=== PATIENT | female | born 2000 | race Caucasian/White ===

== ENCOUNTER 2022-04-06 04:00 | Observation (INO) ==
[2022-04-06] MEDS ORDERED: *HR* Nalbuphine 10 MG/ML AMPUL IV PRN (04:05)
[2022-04-06] MEDS ORDERED: Naloxone 0.4 MG/ML INJ IVP PRN (04:05)
[2022-04-06] MEDS ORDERED: Ondansetron 4 MG/2 ML VIAL IVP PRN (04:05)
[2022-04-06] MEDS ORDERED: miSOPROStoL 25 MCG TABLET PO PRN (04:05)
[2022-04-06] MEDS ORDERED: Famotidine 20 MG/2 ML VIAL IVP PRN (04:05)
[2022-04-06] MEDS ORDERED: Metoclopramide 10 MG/2 ML VIAL IVP PRN (04:05)
[2022-04-06] MEDS ORDERED: Ringers Solution, Lactated 1,000 ML IVC SCH (04:15)
[2022-04-06 05:06] LABS: Basophils % 0.4 %; Eosinophils # 0.2 K/mcL (0.0-0.6); Eosinophils % 2.8 %; Hematocrit 38.4 % (35.3-44.9); Hemoglobin 13.3 g/dL (11.5-15.4); Immature Granulocytes % 0.8 % (0-4); Lymphocytes # 2.5 K/mcL (0.6-4.6); Lymphocytes % 31.2 %; Mean Corpuscular HGB Conc 34.6 g/dL (31.6-35.5); Mean Corpuscular Hemoglobin 29.8 pg (28.0-33.3); Mean Corpuscular Volume 85.9 fL (83.0-100.0); Mean Platelet Volume 9.7 fL (9.4-12.4); Monocytes # 0.6 K/mcL (0.0-1.3); Monocytes % 7.4 %; Neutrophils # 4.6 K/mcL (1.6-8.9); Platelet Count 246 K/mcL (140-400); Red Blood Count 4.47 M/mcL (3.82-4.97); Red Cell Distribution Width 13.2 % (11.5-14.5); Segmented Neutrophils % 57.4 %
[2022-04-06 05:08] LABS: Amphetamine Screen,Urine Negative ng/mL (Cutoff=1000); Barbiturate Screen,Urine Negative ng/mL (Cutoff=200); Benzodiazepines Screen,Urine Negative ng/mL (Cutoff=200); Cannabinoid Screen,Urine Negative ng/mL (Cutoff = 50); Cocaine Screen,Urine Negative ng/mL (Cutoff= 300); Opiate Screen,Urine Negative ng/mL (Cutoff=300); Phencyclidine Screen,Urine Negative ng/mL (Cutoff=25)
[2022-04-06] MEDS ORDERED: EPHEDrine sulfate 50 MG/10 ML VIAL IVP PRN (08:48)
[2022-04-06] MEDS ORDERED: Epidural Premix (fent/bupiv) 110 ML EP SCH (09:00)
[2022-04-06] MEDS ORDERED: Oxytocin 30 UNIT/503 ML BAG IVC SCH (11:30)
== END 2022-04-06 18:30 | disposition home or self-care (01) ==
LOC: INTOOBSV 04:01 → 1NENULAB 04:01
PROVIDERS: ADMIT Obstetrics & Gynecology; ATTEND Obstetrics & Gynecology

== ENCOUNTER → 2022-04-08 16:21 | Observation (INO) | END | disposition home or self-care (01) | LOC: 1NENULAB | PROVIDERS: ADMIT Obstetrics & Gynecology; ATTEND Obstetrics & Gynecology ==

== ENCOUNTER 2022-04-12 19:19 | Inpatient (IN) ==
[2022-04-12] MEDS ORDERED: Ringers Solution, Lactated 1,000 ML ONE (19:20)
[2022-04-12] MEDS ORDERED: Lidocaine 1% 20 ML MDV INFILT PRN (19:58)
[2022-04-12] MEDS ORDERED: *HR* Nalbuphine 10 MG/ML AMPUL IV PRN (19:58)
[2022-04-12] MEDS ORDERED: Naloxone 0.4 MG/ML INJ IVP PRN (19:58)
[2022-04-12] MEDS ORDERED: Metoclopramide 10 MG/2 ML VIAL IVP PRN (19:58)
[2022-04-12] MEDS ORDERED: Famotidine 20 MG/2 ML VIAL IVP PRN (19:58)
[2022-04-12] MEDS ORDERED: Ondansetron 4 MG/2 ML VIAL IVP PRN (19:58)
[2022-04-12] MEDS ORDERED: Ringers Solution, Lactated 1,000 ML IVC SCH (20:00)
[2022-04-12] MEDS ORDERED: *HR* Nalbuphine 10 MG/ML AMPUL ONE (20:11)
[2022-04-12 20:49] LABS: Basophils % 0.1 %; Eosinophils # 0.1 K/mcL (0.0-0.6); Eosinophils % 0.7 %; Hematocrit 36.4 % (35.3-44.9); Hemoglobin 12.6 g/dL (11.5-15.4); Immature Granulocytes % 0.7 % (0-4); Lymphocytes # 1.2 K/mcL (0.6-4.6); Lymphocytes % 13.6 %; Mean Corpuscular HGB Conc 34.6 g/dL (31.6-35.5); Mean Corpuscular Hemoglobin 30.3 pg (28.0-33.3); Mean Corpuscular Volume 87.5 fL (83.0-100.0); Monocytes # 0.4 K/mcL (0.0-1.3); Monocytes % 4.9 %; Neutrophils # 7.1 K/mcL (1.6-8.9); Platelet Count 227 K/mcL (140-400); Red Blood Count 4.16 M/mcL (3.82-4.97); Red Cell Distribution Width 13.2 % (11.5-14.5); White Blood Count 8.9 K/mcL (4.3-11.1)
[2022-04-12 20:59] LABS: Amphetamine Screen,Urine Negative ng/mL (Cutoff=1000); Barbiturate Screen,Urine Negative ng/mL (Cutoff=200); Benzodiazepines Screen,Urine Negative ng/mL (Cutoff=200); Cannabinoid Screen,Urine Negative ng/mL (Cutoff = 50); Cocaine Screen,Urine Negative ng/mL (Cutoff= 300); Creatinine,Urine 19 mg/dL; Opiate Screen,Urine Negative ng/mL (Cutoff=300); Phencyclidine Screen,Urine Negative ng/mL (Cutoff=25); Protein/Creatinine Ratio,Urine 0.26 mg/mg (0.00-0.20)
[2022-04-12 21:10] LABS: Alanine Aminotransferase 17 Units/L (7-52); Aspartate Amino Transferase 21 Units/L (13-39); BUN/Creatinine Ratio 8 (6-26); Blood Urea Nitrogen 4 mg/dL (6-20); Lactate Dehydrogenase 210 Units/L (140-271); Uric Acid 4.2 mg/dL (2.3-7.6)
[2022-04-12] MEDS ORDERED: 0.9 % Sodium Chloride 1,000 ML IVC SCH (21:30)
[2022-04-12] MEDS ORDERED: Epidural Premix (fent/bupiv) 110 ML EP ONE (21:39)
[2022-04-12] MEDS ORDERED: Tranexamic Acid 1,000 MG/100ML 1,000 MG/100 ML PIGGYBACK IVPB ONE ×2 (22:45→22:55)
[2022-04-13] MEDS ORDERED: EPHEDrine sulfate 50 MG/10 ML VIAL IVP PRN (00:16)
[2022-04-13] MEDS ORDERED: Epidural Premix (fent/bupiv) 110 ML EP SCH (00:30)
[2022-04-13] MEDS ORDERED: Oxytocin 30 UNIT/503 ML BAG IVC SCH ×2 (04:15→09:36)
[2022-04-13] MEDS ORDERED: Tranexamic Acid 1,000 MG/100ML 1,000 MG/100 ML PIGGYBACK IVPB ONE (06:58)
[2022-04-13] MEDS ORDERED: PIGGYBACK IVPB ONE (08:00)
[2022-04-13] MEDS ORDERED: TRANEXAMIC ACID IVPB ONE (08:00)
[2022-04-13] MEDS ORDERED: Measles/Mumps/Rubella Vacc 0.5 ML VIAL SQ PRN (09:36)
[2022-04-13] MEDS ORDERED: Benzocaine/Menthol 56 GM AEROSOL SPRAY TP PRN (09:36)
[2022-04-13] MEDS ORDERED: Ondansetron ODT 4 MG TAB.RAPDIS SL PRN (09:36)
[2022-04-13] MEDS ORDERED: Lanolin 7 G OINT...G. TP PRN (09:36)
[2022-04-13] MEDS ORDERED: Prenatal Vit/FA 1 EACH TABLET PO SCH (09:36)
[2022-04-13] MEDS ORDERED: Rho Immune Globulin 1,500 UNIT SYRINGE IM PRN (09:36)
[2022-04-13] MEDS: Acetaminophen 325 MG TABLET PO SCH ×3 (10:03→21:30)
[2022-04-13] MEDS: TRANEXAMIC ACID 1300 MG PO SCH ×2 (13:04→21:30)
[2022-04-13 13:14] LABS: Basophils % 0.2 %; Eosinophils % 0.1 %; Hemoglobin 11.7 g/dL (11.5-15.4); Immature Granulocytes % 0.4 % (0-4); Lymphocytes # 1.2 K/mcL (0.6-4.6); Lymphocytes % 10.7 %; Mean Corpuscular HGB Conc 34.4 g/dL (31.6-35.5); Mean Corpuscular Hemoglobin 29.7 pg (28.0-33.3); Mean Corpuscular Volume 86.3 fL (83.0-100.0); Mean Platelet Volume 9.7 fL (9.4-12.4); Monocytes # 0.8 K/mcL (0.0-1.3); Monocytes % 6.5 %; Neutrophils # 9.5 K/mcL (1.6-8.9); Platelet Count 202 K/mcL (140-400); Red Blood Count 3.94 M/mcL (3.82-4.97); Red Cell Distribution Width 13.2 % (11.5-14.5); Segmented Neutrophils % 82.1 %; White Blood Count 11.5 K/mcL (4.3-11.1)
[2022-04-13] MEDS ORDERED: TRANEXAMIC ACID 650 MG TABLET PO SCH (14:30)
[2022-04-14 04:55] VITALS: O2SAT 97
[2022-04-14 04:58] LABS: Basophils % 0.2 %; Eosinophils # 0.2 K/mcL (0.0-0.6); Eosinophils % 1.6 %; Hematocrit 30.3 % (35.3-44.9); Hemoglobin 10.6 g/dL (11.5-15.4); Immature Granulocytes % 0.7 % (0-4); Lymphocytes # 2.3 K/mcL (0.6-4.6); Lymphocytes % 22.1 %; Mean Corpuscular Hemoglobin 30.5 pg (28.0-33.3); Mean Corpuscular Volume 87.3 fL (83.0-100.0); Mean Platelet Volume 9.9 fL (9.4-12.4); Monocytes # 0.8 K/mcL (0.0-1.3); Monocytes % 7.3 %; Neutrophils # 7.1 K/mcL (1.6-8.9); Platelet Count 252 K/mcL (140-400); Red Blood Count 3.47 M/mcL (3.82-4.97); Red Cell Distribution Width 13.4 % (11.5-14.5); Segmented Neutrophils % 68.1 %; White Blood Count 10.4 K/mcL (4.3-11.1)
[2022-04-14] MEDS ORDERED: miSOPROStoL 100 MCG TABLET RC ONE (06:39)
[2022-04-14] MEDS ORDERED: Methylergonovine 0.2 MG/ML AMPUL IM ONE (06:39)
[2022-04-14 07:24] VITALS: BP 120/86; PULSE 101; TEMP 98.1
[2022-04-14] MEDS: Acetaminophen 325 MG TABLET PO SCH ×2 (08:36)
[2022-04-14] MEDS: TRANEXAMIC ACID 1300 MG PO SCH (08:37)
== END 2022-04-14 14:37 | disposition home or self-care (01) | DRG 806 ==
LOC: 1NENULAB → 1NENUOBS 04-13 09:58
PROVIDERS: ADMIT Obstetrics & Gynecology; ATTEND Obstetrics & Gynecology